=== PATIENT | female | born 1965 | race Two or more races ===

== ENCOUNTER 2024-09-27 19:26 | Emergency (ER) | payer OTHER ==
[~2024-09-27] VITALS: Ht 165.1 cm; Wt 77.0 kg
[2024-09-27 19:30] VITALS: O2SAT 95
[2024-09-27 19:59] VITALS: BP 141/67; PULSE 81; RESP 20; TEMP 36.8; O2SAT 97
[2024-09-27] MEDS: ACETAMINOPHEN 325MG TABLET PO ONE (20:26)
[2024-09-27] MEDS: TETANUS, DIPHTHERIA, PERTUSSIS VAC/PF 0.5ML (>10YR OLD) IM ONE (20:31)
[2024-09-27] MEDS ORDERED: IBUP-1523 MT (21:36)
[2024-09-27] MEDS ORDERED: AMOX50SU15 MT (21:36)
[2024-09-27] MEDS ORDERED: TOPUD MT (21:36)
== END 2024-09-27 21:56 | disposition home or self-care (01) ==
LOC: ER 19:26
DX: S91.052A Open bite, left ankle, initial encounter (principal); E11.9 Type 2 diabetes mellitus without complications; E78.00 Pure hypercholesterolemia, unspecified; I10 Essential (primary) hypertension; Z23 Encounter for immunization; W54.0XXA Bitten by dog, initial encounter; Y93.89 Activity, other specified; Y92.410 Unspecified street and highway as the place of occurrence of the external cause; Y99.8 Other external cause status
CPT/HCPCS: 90715; 90471; 99283; Z7610